=== PATIENT | female | born 1955 | race Caucasian/White ===

== ENCOUNTER → 2017-11-28 01:51 | Outpatient (CLI) | payer BC, SELFPAY ==
--- NOTE | 2017-11-28 11:50 | DI.REPORT_ITS ---
SYMPTOMS/DIAGNOSIS: SCREENING, Z12.31 MAMMOGRAM: Mammograms were interpreted according to the usual protocol including computer analysis with CAD system, tomosynthesis and C view imaging. Comparison is made with exams from 2013 through 2017. The breasts are composed of fatty density tissue. There are no suspicious masses or suspicious microcalcifications. There has been no significant change. IMPRESSION: Category I A, negative mammogram. Routine screening is recommended. [facility] ASSESSMENT OF FINDINGS: Negative. Category 1. Patient will receive a letter notifying them of these results. BI-RAD category A. The breasts are almost entirely fatty.
== END ==
PROVIDERS: PCP Family Medicine; Visit Provider Family Medicine
DX: Z12.31 Encounter for screening mammogram for malignant neoplasm of breast (principal)
CPT/HCPCS: 77063; 77067

== ENCOUNTER 2018-02-11 14:01 | Emergency (ER) | payer BC, SELFPAY ==
[2018-02-11] VITALS (14 sets, daily range): BP systolic 133–181; BP diastolic 69–121; PULSE 63–76; RESP 16–18; TEMP 36.6–37; O2SAT 94–99
--- NOTE | 2018-02-11 14:12 | DI.CT_ITS ---
SYMPTOM/DIAGNOSIS: BACK AND LUQ PAIN CT ABDOMEN AND PELVIS: CT scan of the abdomen and pelvis was performed following the uneventful administration of intravenous contrast material. No priors for comparison. The visualized lung bases are clear. There are small round hypodense lesions seen in the liver. They are too small for further characterization but likely reflect cysts. No suspicious hepatic masses are seen. The portal and superior mesenteric veins are patent. The patient is status post cholecystectomy. No biliary ductal dilatation is present. The pancreas, spleen and adrenal glands are unremarkable. The kidneys show normal and symmetric enhancement. No evidence of a solid renal mass or obstruction is seen. The urinary bladder is intact. The reproductive organs are unremarkable. There is diverticulosis of the colon but no evidence of acute diverticulitis. The bowel is unremarkable without evidence of obstruction. There is a normal appendix present. The abdominal aorta is of normal caliber. No aneurysmal dilatation is seen. No significant abdominal or pelvic ascites or pneumoperitoneum is present. Note is made of a small fat containing umbilical hernia. There is slight increased attenuation in the mesentery in the left upper quadrant (hoda mesentery). There are enlarged lymph nodes seen in the mesentery. The largest measures 2.1 cm. The bones are intact. IMPRESSION: Findings consistent with acute mesenteritis.
--- NOTE | 2018-02-11 14:12 | W.ED.GENAD ---
Discharge Plan Disposition Patient Disposition: HOME Condition: Fair Discharge Details Chief Complaint: Abd Prob Clinical Impression: Abdominal pain Reason For Visit: back and LUQ pain Primary Care Provider: Angi Reynolds ED Provider: Angela Medrano Home Meds and New Rx's Prescriptions: New tramadol 50 mg tablet 50 mg PO Q6H PRN (Reason: pain) Qty: 7 RF: 0 Continue vitamin E 400 UNIT capsule 1 cap PO DAILY RF: 0 calcium carbonate-vitamin D3 [Caltrate with Vitamin D3] 1 EACH tablet 1 tab PO DAILY RF: 0 glucosamine sulfate 2KCl 1,000 MG tablet 1,000 mg PO DAILY RF: 0 simvastatin [Zocor] 20 MG tablet 1 tab PO QAM Qty: 90 RF: 3 levothyroxine [Synthroid] 75 MCG tablet 75 mcg PO as directed Qty: 24 RF: 4 sertraline [Zoloft] 100 MG tablet 1 tab PO DAILY Qty: 90 RF: 3 levothyroxine 50 MCG tablet 50 mcg PO - Qty: 70 RF: 4 conj estrog-medroxyprogest urszula [Prempro] 1 EACH tablet 1 tab-cap PO DIRECTED Qty: 90 RF: 1 aspirin [Aspir-Low] 81 mg Tablet,Delayed Release (Dr/Ec) 81 mg PO DAILY RF: 0 cranberry-B.jlxsepdn-X-Cl phos [Cranberry-Probiotic] 480 mg-20 mg- 100million cell Tablet 1 tab PO DAILY RF: 0 Discharge Instructions Instructions: Abdominal Pain (ED) Additional Instructions: Encourage hydration. Tylenol and/or ibuprofen as needed for discomfort. You may augment this with tramadol as prescribed. Please take this only as prescribed and keep this in a safe place. Laboratory evaluation is reassuring today. Your imaging suggest mesenteritis which is inflammation of the mesentery. You will need follow-up with general surgery this week for reevaluation. I have asked her acute care occupational therapist to help facilitate this. If you develop increased pain, fever/chills, vomiting, inability to stay hydrated or other new/worsening symptoms please seek care urgently once again. Referrals: Angi Reynolds [Primary Care Provider] - Discharge Data Discharge Date/Time-TO BE ENTERED AT DEPARTURE: 02/11/18 18:14 Medical Decision Making Patient is a 62-year-old female presenting today with chief complaint of left upper quadrant and left-sided back pain. She reports she awoke with some back discomfort which she reports felt like a ache. States that it did not actually wake him from sleep. Throughout the day the pain has progressively increased and has been spreading around anteriorly. She denies any chest pain or shortness of breath. Is endorsing some mild nausea that has since resolved. States she had normal bowel movement this morning. Reports last alcohol intake was 3 days ago at which time she had a few glasses of wine. She had diminished appetite today. States over the past month she has noted her diet to be particularly poor. She does not have elevated blood pressure but she did check this earlier this week and awakened and noted to be 168/70. This is higher than typical. Attributes this to her dietary changes. States she has never had pain like this previously. Patient is status post cholecystectomy and laparoscopic lysis of adhesion. Laboratory evaluation without significant abnormality CT reviewed by radiologist. There are 2 intermediate subcentimeter low-density hepatic lesions. Per white paper guidelines, they advised no follow-up is necessary. Patient is noted to be status post cholecystectomy. Pancreas unremarkable no ductal dilation. Spleen is unremarkable spinal megaly. Adrenals are normal with no mass. Kidneys and ureters are unremarkable no stones or hydronephrosis. Patient is noted to have mild diverticulosis of the descending sigmoid colon, no diverticulitis. No colitis. No enteritis. No bowel obstruction. Unremarkable stomach. No evidence of appendicitis. Bladder is unremarkable as visualized. Reproductive unremarkable as visualized. Intraperitoneal space is significant for hazy density of mesenteric fat hoda mesentery in the left upper quadrant. Thin pseudocapsule in cases the inflamed mesentery and there are mildly enlarged mesenteric lymph nodes. These mesenteric nodes have a halo of spread fat. These findings are consistent with acute mesenteritis. Degenerative disc disease and facet arthrosis of the lumbar spine, most severe at L1-L2 with no acute fracture. Soft tissues are unremarkable. Vasculature is unremarkable as visualized no abdominal aortic aneurysm Discussed CT findings with Dr. Sy. She advised that this is likely inflammatory versus a viral process. Given the patient's laboratory evaluation with no leukocytosis, shift or other abnormality noted, she did not advise antibiotics at this time. Rather, she advised follow-up as an outpatient in the clinic. Discussed the findings of the CT and recommendations by general surgery with the patient. Advised that as her pain seems to wax and wane, I will prescribe tramadol to help with her discomfort which she may use to augment Tylenol and ibuprofen as needed. I did advise close follow-up with general surgery. She is requesting referral to [facility] that she has been seen here previously. I have asked her acute care occupational therapist to help facilitate follow-up this week with general surgery for reevaluation. They did encourage patient to seek care urgently once again with any new or worsening symptoms particularly as this pain was just coming on and may be developing process. She was given strict return precautions. All of her questions and concerns were addressed and she is in agreement with this plan. HPI General Mode of arrival: ambulatory. Date/Time Provider Initiated Documentation: 02/11/18 14:11. Limitations to Documentation: no limitations. Information obtained by: patient. History of Present Illness 62 year old F presents to the emergency department with the chief complaint of LUQ pain, described as mild, with intensity rated at 3. Quality is described as aching, and is localized to the abdomen. Patient reports radiation to back (left flank). Patient started experiencing this hour(s) (0430 this AM) and it has been constant. No relieving factors improve symptom(s), No exacerbating factors reported . Patient notes loss of appetite; denies chest pain, cough, diaphoresis, fever/chills, headaches, nausea/vomiting, rash and shortness of breath. Patient did receive the following treatments prior to arrival, none Related Data Home Medications Medication Instructions Recorded Confirmed calcium carbonate-vitamin D3 1 tab PO DAILY 08/14/12 02/11/18 [Caltrate with Vitamin D3] vitamin E 1 cap PO DAILY 08/14/12 02/11/18 glucosamine sulfate 2KCl 1,000 mg PO DAILY 01/07/13 02/11/18 levothyroxine [Synthroid] 75 mcg PO as directed #24 tab 10/28/14 02/11/18 sertraline [Zoloft] 1 tab PO DAILY #90 tab-cap 10/28/14 02/11/18 simvastatin [Zocor] 1 tab PO QAM #90 tab-cap 10/28/14 02/11/18 levothyroxine 50 mcg PO M-F #70 tab-cap 10/30/14 02/11/18 conj estrog-medroxyprogest urszula 1 tab-cap PO DIRECTED #90 02/26/15 02/11/18 [Prempro] tab-cap aspirin [Aspir-Low] 81 mg PO DAILY 02/11/18 02/11/18 cranberry-B.fkmodbru-B-Ny phos 1 tab PO DAILY 02/11/18 02/11/18 [Cranberry-Probiotic] tramadol 50 mg PO Q6H PRN #7 tab 02/11/18 Previous Rx's Medication Instructions Recorded tramadol 50 mg PO Q6H PRN #7 tab 02/11/18 Allergies Allergy/AdvReac Type Severity Reaction Status Date / Time No Known Allergies Allergy Unverified 02/11/18 14:25 Review of Systems Constitutional Reports as per HPI, Denies chills, Denies fatigue, Denies fever(s) and Denies headache(s) ENT Denies headache(s) Cardiovascular Reports as per HPI, Denies chest pain and Denies dyspnea Respiratory Denies dyspnea Gastrointestinal Reports as per HPI Musculoskeletal Reports as per HPI and Denies back pain Integumentary/Breasts Reports as per HPI and Denies rash Neurologic Denies headache(s) Endocrine Denies fatigue PFSH Family History Mother Essential hypertension Personal history of malignant neoplasm Hyperlipidemia Father Essential hypertension Personal history of malignant neoplasm Hyperlipidemia Cerebrovascular accident Sister Essential hypertension Hyperlipidemia Brother Essential hypertension Heart disease Hyperlipidemia Brother Multiple sclerosis Brother Personal history of malignant neoplasm Grandfather Personal history of malignant neoplasm Grandfather Personal history of malignant neoplasm Grandmother Personal history of malignant neoplasm Heart disease Grandmother Heart disease Myocardial infarction Social History Smoking/Tobacco Use Status: Never Surgical History Arthroplasty of knee (~2001) section Cholecystectomy (~2010) Diagnostic Laproscopy EAR SURGERY (~03/2013) MASTOIDECTOMY (~1994) Tonsillectomy (~1980) Exam Const General: cooperative, healthy appearing, comfortable, no acute distress and well developed Nutritional Appearance: well nourished and overweight Orientation: alert and awake HENMT Head: normal to inspection Mouth: moist mucous membranes Resp Effort & Inspection: normal respiratory effort, able to speak in complete sentences and no respiratory distress Auscultation: clear to auscultation bilaterally, no rales, no rhonchi and no wheezes Cardio Rate: regular rate Rhythm: regular rhythm Heart Sounds: S1 normal and S2 normal GI Inspection: normal to inspection, no abdominal wall ecchymosis, no edema and non-distended Palpation: soft, no hepatosplenomegaly, no aortic enlargement, not firm, no guarding, no hernias, not rigid and tender in the LUQ; not in the epigastrum, not at McBurney's point, not periumbilically, not suprapubicly, Ellison's sign negative, with no rebound tenderness and Rovsing's sign negative Auscultation: normal bowel sounds Back/Spine/Pelvis Back: no CVA tenderness Skin General skin exam: no rashes or lesions noted Trauma: no lacerations or abrasions Neuro General: alert and awake Cognition: normal cognition Speech: speech normal Gait: normal gait Psych Appearance: grossly normal and well kempt Mental Status: mental status grossly normal Speech and Movement: speech and movement normal
--- NOTE | 2018-02-11 14:30 | ED.GENADUL_ITS ---
Discharge Plan Disposition Patient Disposition: HOME Condition: Fair Discharge Details Chief Complaint: Abd Prob Clinical Impression: Abdominal pain Reason For Visit: back and LUQ pain Primary Care Provider: Angi Reynolds ED Provider: Angela Medrano Home Meds and New Rx's Prescriptions: New tramadol 50 mg tablet 50 mg PO Q6H PRN (Reason: pain) Qty: 7 RF: 0 Continue vitamin E 400 UNIT capsule 1 cap PO DAILY RF: 0 calcium carbonate-vitamin D3 [Caltrate with Vitamin D3] 1 EACH tablet 1 tab PO DAILY RF: 0 glucosamine sulfate 2KCl 1,000 MG tablet 1,000 mg PO DAILY RF: 0 simvastatin [Zocor] 20 MG tablet 1 tab PO QAM Qty: 90 RF: 3 levothyroxine [Synthroid] 75 MCG tablet 75 mcg PO as directed Qty: 24 RF: 4 sertraline [Zoloft] 100 MG tablet 1 tab PO DAILY Qty: 90 RF: 3 levothyroxine 50 MCG tablet 50 mcg PO - Qty: 70 RF: 4 conj estrog-medroxyprogest urszula [Prempro] 1 EACH tablet 1 tab-cap PO DIRECTED Qty: 90 RF: 1 aspirin [Aspir-Low] 81 mg Tablet,Delayed Release (Dr/Ec) 81 mg PO DAILY RF: 0 cranberry-B.jgpzegxl-K-Vl phos [Cranberry-Probiotic] 480 mg-20 mg- 100million cell Tablet 1 tab PO DAILY RF: 0 Discharge Instructions Instructions: Abdominal Pain (ED) Additional Instructions: Encourage hydration. Tylenol and/or ibuprofen as needed for discomfort. You may augment this with tramadol as prescribed. Please take this only as prescribed and keep this in a safe place. Laboratory evaluation is reassuring today. Your imaging suggest mesenteritis which is inflammation of the mesentery. You will need follow-up with general surgery this week for reevaluation. I have asked her care consultant to help facilitate this. If you develop increased pain, fever/chills, vomiting, inability to stay hydrated or other new/worsening symptoms please seek care urgently once again. Referrals: Angi Reynolds [Primary Care Provider] - Discharge Data Discharge Date/Time-TO BE ENTERED AT DEPARTURE: 02/11/18 18:14 Medical Decision Making Patient is a 62-year-old female presenting today with chief complaint of left upper quadrant and left-sided back pain. She reports she awoke with some back discomfort which she reports felt like a ache. States that it did not actually wake him from sleep. Throughout the day the pain has progressively increased and has been spreading around anteriorly. She denies any chest pain or shortness of breath. Is endorsing some mild nausea that has since resolved. States she had normal bowel movement this morning. Reports last alcohol intake was 3 days ago at which time she had a few glasses of wine. She had diminished appetite today. States over the past month she has noted her diet to be particularly poor. She does not have elevated blood pressure but she did check this earlier this week and awakened and noted to be 168/70. This is higher than typical. Attributes this to her dietary changes. States she has never had pain like this previously. Patient is status post cholecystectomy and laparoscopic lysis of adhesion. Laboratory evaluation without significant abnormality CT reviewed by radiologist. There are 2 intermediate subcentimeter low-density hepatic lesions. Per white paper guidelines, they advised no follow-up is necessary. Patient is noted to be status post cholecystectomy. Pancreas unremarkable no ductal dilation. Spleen is unremarkable spinal megaly. Adrenals are normal with no mass. Kidneys and ureters are unremarkable no stones or hydronephrosis. Patient is noted to have mild diverticulosis of the descending sigmoid colon, no diverticulitis. No colitis. No enteritis. No bowel obstruction. Unremarkable stomach. No evidence of appendicitis. Bladder is unremarkable as visualized. Reproductive unremarkable as visualized. Intraperitoneal space is significant for hazy density of mesenteric fat hoda mesentery in the left upper quadrant. Thin pseudocapsule in cases the inflamed mesentery and there are mildly enlarged mesenteric lymph nodes. These mesenteric nodes have a halo of spread fat. These findings are consistent with acute mesenteritis. Degenerative disc disease and facet arthrosis of the lumbar spine, most severe at L1-L2 with no acute fracture. Soft tissues are unremarkable. Vasculature is unremarkable as visualized no abdominal aortic aneurysm Discussed CT findings with Dr. Sy. She advised that this is likely inflammatory versus a viral process. Given the patient's laboratory evaluation with no leukocytosis, shift or other abnormality noted, she did not advise antibiotics at this time. Rather, she advised follow-up as an outpatient in the clinic. Discussed the findings of the CT and recommendations by general surgery with the patient. Advised that as her pain seems to wax and wane, I will prescribe tramadol to help with her discomfort which she may use to augment Tylenol and ibuprofen as needed. I did advise close follow-up with general surgery. She is requesting referral to [facility] that she has been seen here previously. I have asked her care consultant to help facilitate follow-up this week with general surgery for reevaluation. They did encourage patient to seek care urgently once again with any new or worsening symptoms particularly as this pain was just coming on and may be developing process. She was given strict return precautions. All of her questions and concerns were addressed and she is in agreement with this plan. HPI General Mode of arrival: ambulatory . Date/Time Provider Initiated Documentation: 02/11/18 14:11 . Limitations to Documentation: no limitations . Information obtained by: patient . History of Present Illness 62 year old F presents to the emergency department with the chief complaint of LUQ pain, described as mild, with intensity rated at 3. Quality is described as aching, and is localized to the abdomen. Patient reports radiation to back (left flank). Patient started experiencing this hour(s) ( 0430 this AM) and it has been constant. No relieving factors improve symptom (s), No exacerbating factors reported . Patient notes loss of appetite; denies chest pain, cough, diaphoresis, fever/chills, headaches, nausea/vomiting , rash and shortness of breath. Patient did receive the following treatments prior to arrival, none Related Data Home Medications Medication Instructions Recorded Confirmed calcium carbonate-vitamin D3 1 tab PO DAILY 08/14/12 02/11/18 [Caltrate with Vitamin D3] vitamin E 1 cap PO DAILY 08/14/12 02/11/18 glucosamine sulfate 2KCl 1,000 mg PO DAILY 01/07/13 02/11/18 levothyroxine [Synthroid] 75 mcg PO as directed #24 tab 10/28/14 02/11/18 sertraline [Zoloft] 1 tab PO DAILY #90 tab-cap 10/28/14 02/11/18 simvastatin [Zocor] 1 tab PO QAM #90 tab-cap 10/28/14 02/11/18 levothyroxine 50 mcg PO M-F #70 tab-cap 10/30/14 02/11/18 conj estrog-medroxyprogest urszula 1 tab-cap PO DIRECTED #90 02/26/15 02/11/18 [Prempro] tab-cap aspirin [Aspir-Low] 81 mg PO DAILY 02/11/18 02/11/18 cranberry-B.mjupmpqp-E-Vg phos 1 tab PO DAILY 02/11/18 02/11/18 [Cranberry-Probiotic] tramadol 50 mg PO Q6H PRN #7 tab 02/11/18 Previous Rx's Medication Instructions Recorded tramadol 50 mg PO Q6H PRN #7 tab 02/11/18 Allergies Allergy/AdvReac Type Severity Reaction Status Date / Time No Known Allergies Allergy Unverified 02/11/18 14:25 Review of Systems Constitutional Reports as per HPI, Denies chills, Denies fatigue, Denies fever(s) and Denies headache(s) ENT Denies headache(s) Cardiovascular Reports as per HPI, Denies chest pain and Denies dyspnea Respiratory Denies dyspnea Gastrointestinal Reports as per HPI Musculoskeletal Reports as per HPI and Denies back pain Integumentary/Breasts Reports as per HPI and Denies rash Neurologic Denies headache(s) Endocrine Denies fatigue PFSH Family History Mother Essential hypertension Personal history of malignant neoplasm Hyperlipidemia Father Essential hypertension Personal history of malignant neoplasm Hyperlipidemia Cerebrovascular accident Sister Essential hypertension Hyperlipidemia Brother Essential hypertension Heart disease Hyperlipidemia Brother Multiple sclerosis Brother Personal history of malignant neoplasm Grandfather Personal history of malignant neoplasm Grandfather Personal history of malignant neoplasm Grandmother Personal history of malignant neoplasm Heart disease Grandmother Heart disease Myocardial infarction Social History Smoking/Tobacco Use Status: Never Surgical History Arthroplasty of knee (~2001) section Cholecystectomy (~2010) Diagnostic Laproscopy EAR SURGERY (~03/2013) MASTOIDECTOMY (~1994) Tonsillectomy (~1980) Exam Const General: cooperative, healthy appearing, comfortable, no acute distress and well developed Nutritional Appearance: well nourished and overweight Orientation: alert and awake HENMT Head: normal to inspection Mouth: moist mucous membranes Resp Effort & Inspection: normal respiratory effort, able to speak in complete sentences and no respiratory distress Auscultation: clear to auscultation bilaterally, no rales, no rhonchi and no wheezes Cardio Rate: regular rate Rhythm: regular rhythm Heart Sounds: S1 normal and S2 normal GI Inspection: normal to inspection, no abdominal wall ecchymosis, no edema and non -distended Palpation: soft, no hepatosplenomegaly, no aortic enlargement, not firm, no guarding, no hernias, not rigid and tender in the LUQ; not in the epigastrum, not at McBurney's point, not periumbilically, not suprapubicly, Ellison's sign negative, with no rebound tenderness and Rovsing's sign negative Auscultation: normal bowel sounds Back/Spine/Pelvis Back: no CVA tenderness Skin General skin exam: no rashes or lesions noted Trauma: no lacerations or abrasions Neuro General: alert and awake Cognition: normal cognition Speech: speech normal Gait: normal gait Psych Appearance: grossly normal and well kempt Mental Status: mental status grossly normal Speech and Movement: speech and movement normal
[2018-02-11] MEDS: Normal Saline 1,000 ML 1000 ML IV (14:40)
[2018-02-11] MEDS: Normal Saline Flush 10 ML SYR IVP (14:40)
[2018-02-11 14:51] LABS: Abs Immature Grans 0.01 k/cumm (0.0-0.09); Absolute Basophil Count 0.04 k/cumm (0.0-0.2); Absolute Eosinophil Count 0.17 k/cumm (0.0-0.7); Absolute Lymphocyte Count 2.82 k/cumm (1.2-3.4); Absolute Monocyte Count 0.64 k/cumm (0.11-0.7); Absolute Neutrophil Count 5.04 k/cumm (1.2-6.7); Basophils % 0.5; Eosinophils % 1.9; HCT 42.2 % (36.0-46.0); Immature Grans % 0.1; Lymphocytes % 32.3; Mean Corp. HGB Concentration 33.2 g/dL (32.0-36.0); Mean Corpuscular Hemoglobin 31.3 pg (27.0-33.0); Mean Corpuscular Volume 94.4 fL (80-95); Mean Platelet Volume 10.5 fL (8.0-11.0); Monocytes % 7.3; Neutrophils % 57.9; Platelet Count 227 x1000/uL (130-400); RBC 4.47 m/cumm (4.00-5.20); White Blood Cell Count 8.72 k/cumm (4.4-10.8)
[2018-02-11] MEDS: MORPHine 10 MG/ML VIAL 2 MG IVP (14:54)
[2018-02-11 15:10] LABS: ALT 34 U/L (12-78); AST 22 U/L (15-37); Albumin 3.3 g/dL (3.4-5.0); Alkaline Phosphatase 76 U/L (46-116); Anion Gap 6.3 mmol/L (3-11); BUN 15 mg/dL (7-18); Bilirubin, Total 0.3 mg/dL (0.2-1.0); CO2 31.7 mmol/L (21.0-32.0); CREATININE 0.97 mg/dL (0.55-1.02); Calcium 8.8 mg/dL (8.5-10.1); Chloride 103 mmol/L (98-107); Estimated GFR 58.58 (mL/min/1.73m2); Glucose 129 mg/dL (70-100); Lipase 199 U/L (73-393); Magnesium 1.9 mg/dL (1.8-2.4); Potassium 3.6 mmol/L (3.5-5.1); Sodium 141 mmol/L (136-145)
[2018-02-11 15:13] LABS: Troponin I < 0.02 ng/mL (0.00-0.06)
[2018-02-11 16:07] LABS: Bilirubin Negative (Negative); Blood Negative (Negative); Clarity Clear; Glucose Negative (Negative); Ketones Negative (Negative); Leukocyte Esterase Negative (Negative); Nitrite Negative (Negative); Specific Gravity 1.015 (1.005-1.025); Urobilinogen 0.2 EU/dL (Up TO 0.2)
[2018-02-11] MEDS: Omnipaque 350 MG/ML 100 ML BTL IJ (16:25)
--- NOTE | 2018-02-11 16:44 | DI.VRAD_ITS ---
EXAM: CT Abdomen and Pelvis With Intravenous Contrast EXAM DATE/TIME: 02/11/2018 2:14 PM CLINICAL HISTORY: 62 years old, female; Pain; Abdominal pain; Localized; Left upper quadrant (luq); Patient HX: Back and luq pain TECHNIQUE: Axial computed tomography images of the abdomen and pelvis with intravenous contrast. Coronal and sagittal reformatted images were created and reviewed. COMPARISON: No relevant prior studies available. FINDINGS: Lower thorax: No acute findings. ABDOMEN: Liver: There are 2 indeterminate subcentimeter low-density hepatic lesions. ACR White Paper guidelines (Berland, et al. JACR 2010; 7(10):754-98) suggest that no follow-up is necessary. Gallbladder and bile ducts: Status post cholecystectomy. Pancreas: Unremarkable. No ductal dilation. Spleen: Unremarkable. No splenomegaly. Adrenals: Normal. No mass. Kidneys and ureters: Unremarkable. No stones. No hydronephrosis. Stomach and bowel: Mild diverticulosis of the descending and sigmoid colon. No diverticulitis. No colitis. No enteritis. No bowel obstruction. Unremarkable stomach. Appendix: No evidence of appendicitis. PELVIS: Bladder: Unremarkable as visualized. Reproductive: Unremarkable as visualized. ABDOMEN and PELVIS: Intraperitoneal space: There is hazy density of the mesenteric fat (hoda mesentery) in the left upper quadrant. A thin pseudocapsule encases the inflamed mesentery and there are mildly enlarged mesenteric lymph nodes. These mesenteric nodes have a halo of spared fat. The findings are consistent with acute mesenteritis. Bones/joints: Degenerative disc disease and facet arthrosis of the lumbar spine, most severe at L1-L2. No acute fracture. Soft tissues: Unremarkable. Vasculature: Unremarkable. No abdominal aortic aneurysm. Lymph nodes: See above. IMPRESSION: 1. Acute mesenteritis. 2. 2 indeterminate subcentimeter hepatic low-density lesions. ACR White Paper guidelines (Berland, et al. JACR 2010; 7(10):759-59) suggest that no follow-up is necessary. Dictated and Authenticated by: Zeeshan Berry MD. Ordering:MONSE LANGFORD MD
[2018-02-11] MEDS: traMADol 50 MG TAB 150 MG PO (18:04)
--- NOTE | 2018-02-13 17:09 | NUR.NOTE ---
Nursing Note: [place] [facility] [place] patient's preference for follow up. [phone]
== END 2018-02-11 18:14 | disposition home or self-care (01) ==
PROVIDERS: Emergency Provider Physician Assistant; PCP Family Medicine
DX: K65.4 Sclerosing mesenteritis (principal); R10.12 Left upper quadrant pain; M54.5 Low back pain; M51.36 Other intervertebral disc degeneration, lumbar region
CPT/HCPCS: 36415; 80053; 83690; 93005; 96361; 96374; 99285; 74177; 81003; 83735; 84484; 85025; 93010; 99284; J2270; J3490

== ENCOUNTER 2018-03-16 07:15 | Outpatient (CLI) | payer BC, SELFPAY ==
[2018-03-16 09:45] LABS: Cholesterol 219 mg/dL (50-200); HDL Cholesterol 61 mg/dL (40-60); LDL CHOLESTEROL 133 mg/dL (<100); TSH (W/Ref FT4) 2.69 uIU/mL (0.358-3.74); Triglyceride 171 mg/dL (30-150)
== END 2018-03-16 07:35 ==
PROVIDERS: PCP Family Medicine; Visit Provider Family Medicine
DX: E78.5 Hyperlipidemia, unspecified (principal); E03.9 Hypothyroidism, unspecified
CPT/HCPCS: 36415; 80061; 83721; 84443

== ENCOUNTER 2018-11-13 07:42 | Outpatient (CLI) | payer BC, SELFPAY ==
[2018-11-14 11:43] LABS: Lyme Ab w Rflx to Lyme Confirm Negative
[2018-11-15 19:52] LABS: Anaplasma phagocytophilum Negative (Negative); B. miyamotoi PCR Negative (Negative); Babesia divergens/MO-1 Negative (Negative); Babesia duncani Negative (Negative); Babesia microti Negative (Negative); Ehrlichia chaffeensis Negative (Negative); Ehrlichia ewingii/canis Negative (Negative); Ehrlichia muris eauclairensis Negative (Negative)
== END 2018-11-13 08:02 ==
PROVIDERS: PCP Family Medicine; Visit Provider Family Medicine
DX: R00.2 Palpitations (principal)
CPT/HCPCS: 36415; 87798; 86618

== ENCOUNTER 2019-01-21 08:50 | Outpatient (CLI) | payer BC, SELFPAY ==
[2019-01-21 10:17] LABS: ALT 29 U/L (14-59); AST 21 U/L (15-37); Albumin 3.4 g/dL (3.4-5.0); Alkaline Phosphatase 72 U/L (46-116); Anion Gap 8.4 mmol/L (3-11); BUN 14 mg/dL (7-18); Bilirubin, Total 0.5 mg/dL (0.2-1.0); CO2 28.6 mmol/L (21.0-32.0); CREATININE 0.85 mg/dL (0.55-1.02); Calculated LDL 102 mg/dL; Chloride 109 mmol/L (98-107); Cholesterol 178 mg/dL (50-200); Glucose 113 mg/dL (70-100); HDL Cholesterol 62 mg/dL (40-60); Potassium 4.4 mmol/L (3.5-5.1); Sodium 146 mmol/L (136-145); Total Protein 6.2 g/dL (6.4-8.2); Triglyceride 73 mg/dL (30-150)
== END 2019-01-21 09:10 ==
PROVIDERS: PCP Family Medicine; Visit Provider Family Medicine
DX: E78.5 Hyperlipidemia, unspecified (principal); Z00.00 Encounter for general adult medical examination without abnormal findings; E11.9 Type 2 diabetes mellitus without complications; E66.9 Obesity, unspecified; N95.1 Menopausal and female climacteric states
CPT/HCPCS: 36415; 80053; 80061

== ENCOUNTER 2019-03-27 00:58 | Outpatient (CLI) | payer BC, SELFPAY ==
--- NOTE | 2019-03-27 13:20 | DI.US_ITS ---
EXAM: US PELVIS AND TRANSVAGINAL CLINICAL HISTORY: N95.0 POSTMENOPAUSAL BLEEDING, INCLUDE ENDOMETRIAL THICKNESS TECHNIQUE: Ultrasound performed using standard protocol. Transabdominal and transvaginal exams wer e performed. FINDINGS: The exam is somewhat limited by patient body habitus. The uterus measures 6.1 x 3.1 x 4 cm. The end ometrium was not visible on the transvaginal images. A few calcifications are seen in the expected l ocation of the endometrium. The right ovary is normal in size and shows no evidence of a cyst or mas s. The left ovary was not able to be visualized. No free fluid or hydronephrosis is seen. IMPRESSION: Normal size uterus. The endometrial stripe was not well seen on either abdominal or transvaginal peterson ging. The left ovary was not visualized.
== END 2019-03-27 01:18 ==
PROVIDERS: PCP Family Medicine; Visit Provider Nurse Practitioner Women's Health
DX: N95.0 Postmenopausal bleeding (principal)
CPT/HCPCS: 76830; 76856

== ENCOUNTER 2019-04-08 09:30 | Outpatient (REF) | payer BC, SELFPAY ==
--- NOTE | 2019-04-08 08:50 | ENDOMET_PTH ---
PATIENT: Nunu Jade LOC: [facility] U#:[id number] AGE/SX: 63/F ROOM: RE04/08/[address]: Ashley Triana NP : 1955 BED: DIS: 04/08/2019 SPEC #: [id number] RECD: 04/08/19 12:33 STATUS: JOSE ANGEL REQ #: [id number] RHIANNA: 04/08/19 08:[address]: Ashley Triana NP DEPT: Surgical Specimen RECD BY: Lesly Sweeney ENTERED: 04/08/19 12:33 SP TYPE: Endomet OTHR DR: Angi Reynolds Tissues: 1 - ENDOMETRIUM BX/SHERRILL Procedures: GROSS AND MICRO LEVEL 4 Comments: [id number]
== END 2019-04-08 09:50 ==
LOC: LBN 09:30
PROVIDERS: PCP Family Medicine; Visit Provider Nurse Practitioner Women's Health
DX: N85.01 Benign endometrial hyperplasia (principal); N95.0 Postmenopausal bleeding
CPT/HCPCS: 88305

== ENCOUNTER 2019-11-04 10:16 | Outpatient (CLI) | payer BC, SELFPAY ==
[2019-11-06 18:13] LABS: SARS-CoV-2 RNA Undetected (Undetected); SARS-CoV-2 Specimen Source Nasopharynx
== END 2019-11-04 10:36 ==
LOC: LBO 10:16 → NCHCO 10:23
PROVIDERS: PCP Family Medicine; Visit Provider Nurse Practitioner Family
DX: Z11.59 Encounter for screening for other viral diseases (principal)
CPT/HCPCS: U0003

== ENCOUNTER 2019-12-26 01:13 | Outpatient (CLI) | payer BC, SELFPAY ==
--- NOTE | 2019-12-26 15:23 | DI.MAMMO_ITS ---
EXAM: MG MAMMO SCREENING CLINICAL HISTORY: SCREENING, Z12.31 TECHNIQUE: Mammograms were interpreted according to the usual protocol including computer analysis w [employer] CAD system, tomosynthesis and C-view imaging. COMPARISON: FINDINGS: The breasts are of moderate density with fairly symmetrical distribution of fibroglandular tissue. N o dominant mass or clumped microcalcification is identified in either breast. The current examinatio n is compared with previous examinations including November 2017 and there has been no gross interval c hange in appearanceIn comparison with the prior studies. IMPRESSION: No specific evidence of malignancy at this time. Routine screening examinations are suggested at yea rly intervals in this age group according to the ACS ACR guidelines. BI-RADS Cat 1 - Negative Breast Density - Category B - Scattered areas of fibroglandular density
== END 2019-12-26 01:33 ==
PROVIDERS: PCP Family Medicine; Visit Provider Nurse Practitioner Family
DX: Z12.31 Encounter for screening mammogram for malignant neoplasm of breast (principal)
CPT/HCPCS: 77063; 77067

== ENCOUNTER 2020-02-18 21:43 | Emergency (ER) | payer BC, SELFPAY ==
[2020-02-18 21:49] VITALS: BP 140/80; PULSE 85; RESP 16; TEMP 36.8; O2SAT 97
--- NOTE | 2020-02-18 22:17 | ED.GENADUL_ITS ---
Discharge Plan Disposition Patient Disposition: HOME Condition: Good Discharge Details Clinical Impression: Splinter of finger Primary Care Provider: Angi Reynolds ED Provider: Iraj Foley Home Meds and New Rx's Prescriptions: New cephalexin [Keflex] 500 mg capsule 500 mg PO QID 4 Days Qty: 16 RF: 0 Continued vitamin E 400 UNIT capsule 1 cap PO DAILY RF: 0 calcium carbonate-vitamin D3 [Caltrate with Vitamin D3] 1 EACH tablet 1 tab PO DAILY RF: 0 glucosamine sulfate 2KCl 1,000 MG tablet 1,000 mg PO DAILY RF: 0 simvastatin [Zocor] 20 MG tablet 1 tab PO QAM Qty: 90 RF: 3 levothyroxine [Synthroid] 75 MCG tablet 75 mcg PO as directed Qty: 24 RF: 4 sertraline [Zoloft] 100 MG tablet 1 tab PO DAILY Qty: 90 RF: 3 levothyroxine 50 MCG tablet 50 mcg PO - Qty: 70 RF: 4 aspirin [Aspir-Low] 81 mg Tablet,Delayed Release (Dr/Ec) 81 mg PO DAILY RF: 0 Cranberry-Probiotic 480 mg-20 mg- 100million cell Tablet 1 tab PO DAILY RF: 0 Discharge Instructions Instructions: Soft Tissue Foreign Body (ED) Additional Instructions: Splint has been removed. I do suspect that with movement of the wrist may amount of pus and/or drainage for the next day, which should resolve. Please take the antibiotic as directed. Please keep the area dry for the next 48 hours, however you can apply triple antibiotic ointment. Keep it bandaged. You may gently wash it with warm soap and water after 48 hours. Make sure to keep it clean. Continue to apply antibiotic ointment. Do not directly soak the area. Watch for any signs of infection and return if any increasing redness, swelling, pain, drainage. Referrals: Angi Reynolds [Primary Care Provider] - Medical Decision Making 64-year-old female presents for splinter in her right thumb in her dominant hand. Tetanus was last updated in 2010. She states that she was running her hand along the banister when a very large splinter ripped off into her thumb. She was concerned about it size and depth and came in for further evaluation. Aside for pain in the fingers she denies any other complaints. No other modifying factors. Event occurred moments before arrival. Finger was anesthetized with 3 cc of lidocaine, a small incision was made and then a subsequent 1 cm long splinter was removed from the fingertip. It appears to be intact. No other abnormalities noted on exam. Area was cleaned with copious amounts of chlorhexidine scrub vigorously. Bandage was applied. Patient tolerated procedure well. Tetanus has been updated, we will do a short 5-day course of Keflex with the first fourth dose being given here. Discussed red flags which to return. I have extensively reviewed the treatment plan and discharge instructions with the patient. I have addressed all patient concerns at this time. The patient was made aware of what symptoms to monitor for that would warrant a return to the emergency department. Discussed the plan with the patient, they demonstrate verbal understanding and agreement with our assessment and plan at this time. HPI General Date/Time Provider Initiated Documentation: 02/18/20 21:44 . HPI Narrative: 64-year-old female presents for splinter in her right thumb in her dominant hand. Tetanus was last updated in 2010. She states that she was running her hand along the banister when a very large splinter ripped off into her thumb. She was concerned about it size and depth and came in for further evaluation. Aside for pain in the fingers she denies any other complaints. No other modifying factors. Event occurred moments before arrival. Related Data Home Medications Medication Instructions Recorded Confirmed calcium carbonate-vitamin D3 1 tab PO DAILY 08/14/12 02/18/20 [Caltrate with Vitamin D3] vitamin E 1 cap PO DAILY 08/14/12 02/18/20 glucosamine sulfate 2KCl 1,000 mg PO DAILY 01/07/13 02/18/20 levothyroxine [Synthroid] 75 mcg PO as directed #24 tab 10/28/14 02/18/20 sertraline [Zoloft] 1 tab PO DAILY #90 tab-cap 10/28/14 02/18/20 simvastatin [Zocor] 1 tab PO QAM #90 tab-cap 10/28/14 02/18/20 levothyroxine 50 mcg PO M-F #70 tab-cap 10/30/14 02/18/20 Cranberry-Probiotic 1 tab PO DAILY 02/11/18 02/18/20 aspirin [Aspir-Low] 81 mg PO DAILY 02/11/18 02/18/20 cephalexin [Keflex] 500 mg PO QID 4 Days #16 cap 02/18/20 Previous Rx's Medication Instructions Recorded cephalexin [Keflex] 500 mg PO QID 4 Days #16 cap 02/18/20 Allergies Allergy/AdvReac Type Severity Reaction Status Date / Time No Known Allergies Allergy Unverified 02/18/20 21:56 General Stated Complaint: GenMedical CHRISTINE: 4 Review of Systems All systems reviewed & are unremarkable except as noted in HPI and below PFSH Medical History Dyspareunia Vaginal atrophy Surgical History Arthroplasty of knee (~2001) RIGHT section 1994 & 1996 Cholecystectomy (~2010) Diagnostic Laproscopy FOR ADHESIONS EAR SURGERY (~03/2013) History of mastoidectomy 1994 Tonsillectomy (~1980) Family History Mother Essential hypertension Personal history of malignant neoplasm SKIN/PANCREATIC Hyperlipidemia Father Essential hypertension Personal history of malignant neoplasm SKIN Hyperlipidemia Stroke Sister Essential hypertension Hyperlipidemia Brother Essential hypertension Heart disease Hyperlipidemia Brother , SUICIDE at age 48. Multiple sclerosis Brother Personal history of malignant neoplasm SKIN Grandfather Personal history of malignant neoplasm PROSTATE Grandfather Personal history of malignant neoplasm LUNG/STOMACH Grandmother Personal history of malignant neoplasm LEUKEMIA Heart disease Grandmother Heart disease Myocardial infarction Social History Smoking/Tobacco Use Status: Never Smoking risk assessment performed?: Yes Drug use: Never Do you feel safe at home: Yes Do you feel safe in your relationship?: Yes History History 3 Para 2 Hx # Term Pregnancies Multiple births Hx # Pregnancies Ectopic pregnancies AB induced Hx Number of Living Children AB spontaneous Exam Narrative Exam Narrative: 1.Const: Well-nourished, Well-developed, appearing stated age 2.Eyes: PERRL, no conjunctival injection, and symmetrical lids. 3.ENT: Atraumatic external nose and ears. Moist MM. Neck: Symmetric, trachea midline, No thyromegaly. 4.CVS: Peripheral pulses 2+ and equal in all extremities. Brisk capillary refill in all extremities. 5.RESP: Unlabored respiratory effort. Clear to auscultation bilaterally. No wheezes rales or rhonchi 6.GI: Soft, Nontender/Nondistended, No hepatosplenomegaly. No guarding or rebound. 7.MSK: Normocephalic/Atraumatic, Extremities w/o deformity or ttp No cyanosis or clubbing, Normal movement of all extremities 8.Skin: Right thumb demonstrates small introduction site, bedside ultrasound demonstrates subcutaneous splinter roughly 1 cm in length no numbness tingling or decrease in flexion or extension 9.Neuro: consultant education II-XII grossly intact. Sensation grossly intact, no focal neurologic deficits. 10.Psych: (AAO) x3. Appropriate mood and affect Course Vital Signs Vital signs: Vital Signs Temperature 36.8 C 02/18/20 21:49 Pulse 85 02/18/20 21:49 Respiratory Rate 16 02/18/20 21:49 Blood Pressure 140/80 02/18/20 21:49 Pulse Oximetry 97 02/18/20 21:49 Temperature 36.8 C 02/18/20 21:49 Temperature Source Temporal Artery Scan 02/18/20 21:49 Pulse 85 02/18/20 21:49 Respiratory Rate 16 02/18/20 21:49 Respiratory Effort 02/18/20 21:52 Blood Pressure 140/80 02/18/20 21:49 Pulse Oximetry 97 02/18/20 21:49 Pain Level 2 02/18/20 21:49 Procedures Foreign Body Removal Time Out Performed: yes Site: right and hand (thumb) Description of foreign body: other (splinter) Sedation/Analgesia: other (lidocaine) Technique: removal with forceps and incision made to facilitate removal Confirmed by:: direct visualization and ultrasound Complications: none Post-procedure exam: awake, alert, normal BP, normal HR and normal O2 sat Neurovascular: normal distal pulse, normal capillary fill, distal light touch sensation intact, distal motor function normal and no signs of compartment syndrome
[2020-02-18] MEDS: Cephalexin 500 MG CAP, 4 CAPS/BTL PO (22:30)
[2020-02-18 22:35] VITALS: BP 140/80; PULSE 85; RESP 16; TEMP 36.8; O2SAT 97
== END 2020-02-18 22:35 | disposition home or self-care (01) ==
PROVIDERS: Emergency Provider Student in an Organized Health Care Education/Training Program; PCP Family Medicine
DX: S61.041A Puncture wound with foreign body of right thumb without damage to nail, initial encounter (principal); W45.8XXA Other foreign body or object entering through skin, initial encounter
CPT/HCPCS: 10120; 90471

== ENCOUNTER 2020-07-22 11:54 | Emergency (ER) | payer BC, SELFPAY ==
--- NOTE | 2020-07-22 12:00 | DI.RAD_ITS ---
EXAM: XR ANKLE RT COMPLETE CLINICAL HISTORY: lateral pain and swelling. TECHNIQUE: 2D digital imaging was performed. COMPARISON: CR RIGHT ANKLE COMPLETE from 08/22/2009 FINDINGS: There is soft tissue swelling laterally. There is a an avulsion fracture off the tip of the lateral malleolus noted. Medial and posterior mal leoli appear intact as does the talar dome. There is no widening of the ankle mortise. Large inferi or calcaneal spur is noted. No osseous tarsal coalition. IMPRESSION: There is an avulsion fracture off the tip of the lateral malleolus noted. There is overlying soft ti ssue swelling. DATA REPOSITORY: RADIATION DOSE DELIVERED:
[2020-07-22 12:08] VITALS: BP 154/94; PULSE 75; TEMP 36.6; O2SAT 98
--- NOTE | 2020-07-22 12:14 | ED.GENADUL_ITS ---
Discharge Plan Disposition Patient Disposition: HOME Condition: Improving Discharge Details Clinical Impression: Right fibular fracture Primary Care Provider: Angi Reynolds ED Provider: Codey Cervantes Home Meds and New Rx's Prescriptions: Continued vitamin E 400 UNIT capsule 1 cap PO DAILY RF: 0 calcium carbonate-vitamin D3 [Caltrate with Vitamin D3] 1 EACH tablet 1 tab PO DAILY RF: 0 glucosamine sulfate 2KCl 1,000 MG tablet 1,000 mg PO DAILY RF: 0 simvastatin [Zocor] 20 MG tablet 1 tab PO QAM Qty: 90 RF: 3 levothyroxine [Synthroid] 75 MCG tablet 75 mcg PO as directed Qty: 24 RF: 4 sertraline [Zoloft] 100 MG tablet 1 tab PO DAILY Qty: 90 RF: 3 levothyroxine 50 MCG tablet 50 mcg PO - Qty: 70 RF: 4 diltiazem HCl 30 mg tablet 30 mg PO DAILY RF: 0 aspirin [Aspir-Low] 81 mg Tablet,Delayed Release (Dr/Ec) 81 mg PO DAILY RF: 0 Cranberry-Probiotic 480 mg-20 mg- 100million cell Tablet 1 tab PO DAILY RF: 0 Discharge Instructions Instructions: Leg Fracture (ED) Additional Instructions: Please follow-up with orthopedic. Your name will be placed on the follow-up list and we will ask you to call for an appointment time. The number is [phone]. May remove the walking boot to bathe and while at rest. Please wear while awake and out of bed. Elevate above the level of the heart to reduce pain and swelling. May continue to apply ice topically to reduce discomfort Tylenol and/or ibuprofen as needed for pain Nonweightbearing with crutches until seen by orthopedics. Return to the ER for any acute concerns. Medical Decision Making 64-year-old female presents from home with her . She was walking on unlevel ground when she tripped, deviated her ankle and fell forward. She separately developed right lateral ankle swelling and pain that is worse with attempts at weightbearing. No loss of consciousness she denies any other injury other than mild abrasions to the left palm and left knee. Exam is mostly notable for swelling of her right lateral malleolus. She has a aforementioned abrasions but do not feel imaging of those areas is required. Patient given acetaminophen, ice, she had some mild nausea and was given Zofran. She was referred for x-ray. There is a distal fibular avulsion fracture. Patient notes previous difficulty navigating with an ankle sprain. Therefore placed in a walking boot with crutches. We will ask her to follow-up with orthopedics to ensure definitive resolution. She is stable for outpatient management HPI General Mode of arrival: wheelchair . Date/Time Provider Initiated Documentation: 07/22/20 12:06 . Limitations to Documentation: no limitations . Information obtained by: patient and family . History of Present Illness 64 year old F presents to the emergency department with the chief complaint of Right ankle lateral pain and swelling, described as moderate, Quality is described as dull, and is localized to the right and lower extremity. Patient proximal. Patient started experiencing this minute(s) and it has been constant. Rest improves symptom(s), Movement worsens symptoms . Patient notes no other symptoms.; denies headaches and syncope. Patient did receive the following treatments prior to arrival, none Related Data Home Medications Medication Instructions Recorded Confirmed calcium carbonate-vitamin D3 1 tab PO DAILY 08/14/12 07/22/20 [Caltrate with Vitamin D3] vitamin E 1 cap PO DAILY 08/14/12 07/22/20 glucosamine sulfate 2KCl 1,000 mg PO DAILY 01/07/13 07/22/20 levothyroxine [Synthroid] 75 mcg PO as directed #24 tab 10/28/14 07/22/20 sertraline [Zoloft] 1 tab PO DAILY #90 tab-cap 10/28/14 07/22/20 simvastatin [Zocor] 1 tab PO QAM #90 tab-cap 10/28/14 07/22/20 levothyroxine 50 mcg PO M-F #70 tab-cap 10/30/14 07/22/20 Cranberry-Probiotic 1 tab PO DAILY 02/11/18 07/22/20 aspirin [Aspir-Low] 81 mg PO DAILY 02/11/18 07/22/20 diltiazem HCl 30 mg PO DAILY 07/22/20 07/22/20 Allergies Allergy/AdvReac Type Severity Reaction Status Date / Time No Known Allergies Allergy Unverified 07/22/20 12:12 General Stated Complaint: Orthopedic CHRISTINE: 4 Review of Systems Narrative: 4 systems reviewed and otherwise negative [facility] Medical History (Updated 07/22/20 @ 13:21 by Codey Cervantes MD) Dyspareunia Vaginal atrophy Surgical History Arthroplasty of knee (~2001) RIGHT section 1994 & 1996 Cholecystectomy (~2010) Diagnostic Laproscopy FOR ADHESIONS EAR SURGERY (~03/2013) History of mastoidectomy 1994 Tonsillectomy (~1980) Family History Mother Essential hypertension Personal history of malignant neoplasm SKIN/PANCREATIC Hyperlipidemia Father Essential hypertension Personal history of malignant neoplasm SKIN Hyperlipidemia Stroke Sister Essential hypertension Hyperlipidemia Brother Essential hypertension Heart disease Hyperlipidemia Brother , SUICIDE at age 48. Multiple sclerosis Brother Personal history of malignant neoplasm SKIN Grandfather Personal history of malignant neoplasm PROSTATE Grandfather Personal history of malignant neoplasm LUNG/STOMACH Grandmother Personal history of malignant neoplasm LEUKEMIA Heart disease Grandmother Heart disease Myocardial infarction Social History Smoking/Tobacco Use Status: Never Smoking risk assessment performed?: Yes Alcohol Intake: current Alcohol Intake frequency: holidays/special occasions only Drug use: Never Substance use type: does not use Do you feel safe at home: Yes Do you feel safe in your relationship?: Yes History History 3 Para 2 Hx # Term Pregnancies Multiple births Hx # Pregnancies Ectopic pregnancies AB induced Hx Number of Living Children AB spontaneous Exam Narrative Exam Narrative: GEN: awake, alert, oriented 3. Pleasant, well groomed, interactive. HEAD: Normocephalic, atraumatic ENT: Mucous membranes moist, oropharynx unremarkable, External ear exam unremarkable EYES: PERRL, EOMI NECK: Full ROM, no CHUN, no menigismus, nontender CHEST/RESP: Nontender, clear to auscultation bilateral, no wheeze/rhonchi/rales CARDIOVASCULAR: RRR, no murmur, rub asia. 2+ Rad pulse bilateral ABDOMEN: Soft, nontender, no mass. +Bowel sounds EXT: Abrasions proximal left palm, no bony tenderness. Abrasion left knee, no patellar tenderness, no joint laxity. The right lateral malleolus and ankle are diffusely tender and there is predominantly lateral swelling. 2+ DP palpated. Neuro: Grossly normal neurologic exam, conversant, interactive. Psych: Speech fluent, thoughts congruent, affect normal Course Vital Signs Vital signs: Vital Signs Temperature 36.6 C 07/22/20 12:08 Pulse 75 07/22/20 12:08 Blood Pressure 154/94 H 07/22/20 12:08 Pulse Oximetry 98 07/22/20 12:08 Temperature 36.6 C 07/22/20 12:08 Temperature Source Temporal Artery Scan 07/22/20 12:08 Pulse 75 07/22/20 12:08 Respiratory Effort Non-Labored 07/22/20 12:11 Blood Pressure 154/94 H 07/22/20 12:08 Blood Pressure Position Sitting 07/22/20 12:08 Pulse Oximetry 98 07/22/20 12:08 Oxygen Delivery Method Room Air 07/22/20 12:08 Oxygen Flow Rate 0 07/22/20 12:08 Pain Level 3 07/22/20 12:11
[2020-07-22] MEDS: Acetaminophen 500 MG TAB 1000 MG PO (12:30)
[2020-07-22] MEDS: Ondansetron O.D.T. 4 MG TABEF PO (12:30)
--- NOTE | 2020-07-22 13:59 | CMPROGNOTE_ITS ---
- If Service Date Differs Date of service: 07/22/20 Time of Service: 13:59 Care Management Progress Note Nunu presents in the ED for a right fibular fracture. At the request of Dr. Cervantes, ED provider, SARATH telephones [facility] to inquire about the availability of wheelchairs for rent. Renny at [facility] advises that he is out of regular wheelchairs but does have a 24 inch wheelchair available. The cost of the rental is $170.00 per month. This information is relayed to patient and her .
== END 2020-07-22 14:06 | disposition home or self-care (01) ==
PROVIDERS: Emergency Provider Emergency Medicine; PCP Family Medicine
DX: S82.61XA Displaced fracture of lateral malleolus of right fibula, initial encounter for closed fracture (principal); W19.XXXA Unspecified fall, initial encounter; X50.9XXA Other and unspecified overexertion or strenuous movements or postures, initial encounter
CPT/HCPCS: 27786; 73610

== ENCOUNTER 2020-09-03 13:34 | Outpatient (CLI) | payer BC, SELFPAY ==
--- NOTE | 2020-09-03 13:30 | DI.RAD_ITS ---
Exam(s) XR ANKLE RT COMPLETE EXAM: XR ANKLE RT COMPLETE INDICATION: eval R distal fibula pain, s/p inversion injury. COMPARISON: CR XR ANKLE RT COMPLETE from 07/22/2020 TECHNIQUE: 2D digital imaging was performed. FINDINGS: There has been no change in the alignment of the fracture at the tip of the lateral malleolus. Some soft tissue swelling remains present. No ankle mortise widening is seen. A heel spur is again noted . DATA REPOSITORY: RADIATION DOSE DELIVERED:
== END 2020-09-03 13:35 | disposition home or self-care (01) ==
LOC: DIORS 13:35
PROVIDERS: PCP Family Medicine; Referring Provider Family Medicine; Visit Provider Student in an Organized Health Care Education/Training Program
DX: M79.661 Pain in right lower leg (principal); M77.31 Calcaneal spur, right foot; S82.61XD Displaced fracture of lateral malleolus of right fibula, subsequent encounter for closed fracture with routine healing
CPT/HCPCS: 73610

== ENCOUNTER 2020-11-12 04:45 | Outpatient (CLI) | payer BC, SELFPAY ==
[2020-11-12 09:23] LABS: HCT 43.5 % (36.0-46.0); HGB 14.2 g/dL (11.2-15.7); MCH 30.9 pg (27.0-33.0); MCHC 32.6 % (32.0-36.0); MCV 94.6 fL (80-95); MPV 10.5 fL (8.0-11.0); Platelet Count 229 10^3/uL (130-400); RDW 12.7 % (11.7-14.6); WBC 5.95 10^3/uL (4.4-10.8)
[2020-11-12 11:35] LABS: ALT 23 U/L (14-59); AST 21 U/L (15-37); Albumin 3.6 g/dL (3.4-5.0); Alkaline Phosphatase 83 U/L (46-116); Anion Gap 7.4 mmol/L (3-11); BUN 14 mg/dL (7-18); Bilirubin, Total 0.4 mg/dL (0.2-1.0); CO2 27.6 mmol/L (21.0-32.0); CREATININE 0.9 mg/dL (0.55-1.02); Calcium 8.7 mg/dL (8.5-10.1); Calculated LDL 113 mg/dL (<100); Chloride 107 mmol/L (98-107); Cholesterol 192 mg/dL (<200); Glucose 113 mg/dL (74-106); HDL Cholesterol 62 mg/dL (40-60); Potassium 4.8 mmol/L (3.5-5.1); Sodium 142 mmol/L (136-145); TSH (W/Ref FT4) 1.58 uIU/mL (0.36-3.74); Total Protein 6.5 g/dL (6.4-8.2); Triglyceride 89 mg/dL (<150)
[2020-11-12 11:48] LABS: Vitamin D 25 Total 36.5 ng/mL (30-100)
== END 2020-11-12 04:46 | disposition home or self-care (01) ==
LOC: LBO 04:45
PROVIDERS: PCP Family Medicine; Visit Provider Family Medicine
DX: Z00.00 Encounter for general adult medical examination without abnormal findings (principal); E03.9 Hypothyroidism, unspecified; R00.2 Palpitations; R73.03 Prediabetes; E55.9 Vitamin D deficiency, unspecified
CPT/HCPCS: 36415; 80053; 80061; 82306; 85027; 84443

== ENCOUNTER 2020-11-19 10:33 | Outpatient (REF) | payer BC, SELFPAY ==
--- NOTE | 2020-11-19 09:15 | PAPFT_PTH ---
PATIENT: Nunu Jade LOC: [facility]#:[id number] AGE/SX: 65/F ROOM: RE11/19/[address]: Angi Reynolds : 1955 BED: DIS: 11/19/2020 SPEC #: [id number] RECD: 11/19/20 13:15 STATUS: JOSE ANGEL REAmy #: [id number] RHIANNA: 11/19/20 09:[address]: Angi Reynolds DEPT: [facility] Cytology RECD BY: Lesly Sweeney Tissues: 1 - CX/ENDOCX FOR PAP SMEARS Procedures: PAP THIN PREP/UVM Screening HPV DNA PROBE Comments: [id number]
== END 2020-11-19 10:34 | disposition home or self-care (01) ==
LOC: NCHCN 10:33
PROVIDERS: PCP Family Medicine; Visit Provider Family Medicine
DX: Z00.00 Encounter for general adult medical examination without abnormal findings (principal); Z12.4 Encounter for screening for malignant neoplasm of cervix; Z01.419 Encounter for gynecological examination (general) (routine) without abnormal findings; Z11.51 Encounter for screening for human papillomavirus (HPV)
CPT/HCPCS: 88142; 87624

== ENCOUNTER 2020-12-18 04:04 | Outpatient (CLI) | payer BC, SELFPAY ==
--- NOTE | 2020-12-18 | DI.DEXA_ITS ---
Exam(s) XR DEXA BONE DENSITY W/WO JARETT EXAM: XR DEXA BONE DENSITY W/WO JARETT CLINICAL HISTORY: MENOPAUSAL SCREENING, Z78.0 TECHNIQUE: COMPARISON: Comparison 11/17/2015. FINDINGS: Lateral Spine Image: Unremarkable. No compression deformities identified. Left hip: Total T-Score: 1.0. This compares to 1.9 on the prior examination. Total Z-Score: 2.1 T- and Z-scores: Within normal limits. Lumbar Spine: Total T-Score: 1.0. This compares to 1.6 on the prior examination. Total Z-Score: T- and Z-scores: Within normal limits. IMPRESSION: No evidence of osteoporosis.
== END 2020-12-18 04:24 ==
PROVIDERS: PCP Family Medicine; Visit Provider Family Medicine
DX: Z78.0 Asymptomatic menopausal state (principal)
CPT/HCPCS: 77080

== ENCOUNTER 2021-01-01 03:25 | Outpatient (CLI) | payer BC, SELFPAY ==
--- NOTE | 2021-01-01 | DI.MAMMO_ITS ---
Exam(s) MAMMO SCREENING EXAM: MAMMO SCREENING CLINICAL HISTORY: SCREENING, Z12.31 TECHNIQUE: Bilateral full field digital CC and MLO mammographic images were obtained with 3D tomosyn thesis and utilizing computer aided detection (CAD). COMPARISON: Available for comparison. FINDINGS: Masses/Architectural Distortion: None seen. Microcalcifications: No suspicious pleomorphic-type are seen. Skin Thickening/Nipple Retraction: None. IMPRESSION: 1. No significant interval change with no specific features of malignancy noted. 2. Unless there is more urgent need, screening mammography is recommended, as per [employer] guidelines. BI-RADS Category 1 - Negative Breast Density - Category A - Almost entirely fatty Breast density category C or D implies that the patient has dense breast tissue. Dense breast tissue is very common and is not abnormal but dense breast tissue can make it harder to find cancer on a ma mmogram. Also, dense breast tissue may increase their breast cancer risk. This information about the result of the mammogram report was provided to the patient to raise their awareness. Use this report when you speak with the patient about their risks for breast cancer, which includes their family hist ory. At that time, you may recommend for more screening tests (Ultrasound or MRI) as they might be us eful based on their risk. A negative radiographic report should not delay biopsy if a dominant or clinically suspicious mass is present. Up to ten percent of cancers are not identified on mammography. A negative report may reinforce clinical impression. Adenosis and dense breasts may obscure an underlying neoplasm. False positive reports average 6 to 10%. Patient will receive a letter notifying them of these results.
== END 2021-01-01 03:45 ==
PROVIDERS: PCP Family Medicine; Visit Provider Family Medicine
DX: Z12.31 Encounter for screening mammogram for malignant neoplasm of breast (principal)
CPT/HCPCS: 77063; 77067

== ENCOUNTER 2021-07-01 16:35 | Outpatient (REF) | payer BC, SELFPAY ==
[2021-07-01 21:33] LABS: HCT 44.7 % (36.0-46.0); HGB 14.2 g/dL (11.2-15.7); MCH 30.8 pg (27.0-33.0); MCHC 31.8 % (32.0-36.0); MPV 11.5 fL (8.0-11.0); Platelet Count 225 10^3/uL (130-400); RBC 4.61 10^6/uL (3.93-5.22); RDW 13.5 % (11.7-14.6); RDW-SD 48.1 fL; WBC 5.94 10^3/uL (4.4-10.8)
[2021-07-01 21:37] LABS: ALT 27 U/L (14-59); AST 17 U/L (15-37); Albumin 3.8 g/dL (3.4-5.0); Alkaline Phosphatase 78 U/L (46-116); Anion Gap 5.8 mmol/L (3-11); BUN 15 mg/dL (7-18); Bilirubin, Total 0.5 mg/dL (0.2-1.0); C-Reactive Protein 0.11 mg/dL (0.0-0.3); CO2 29.2 mmol/L (21.0-32.0); CREATININE 0.8 mg/dL (0.55-1.02); Calcium 8.7 mg/dL (8.5-10.1); Chloride 108 mmol/L (98-107); Glucose 106 mg/dL (74-106); Potassium 4.2 mmol/L (3.5-5.1); Sodium 143 mmol/L (136-145); Total Protein 6.9 g/dL (6.4-8.2)
[2021-07-01 21:38] LABS: ESR 20 mm/hr (0-30)
== END 2021-07-01 16:36 | disposition home or self-care (01) ==
LOC: NCHCN 16:35
PROVIDERS: PCP Family Medicine; Visit Provider Nurse Practitioner Family
DX: R10.12 Left upper quadrant pain (principal)
CPT/HCPCS: 80053; 85027; 85652; 86140

== ENCOUNTER → 2021-07-02 21:46 | Outpatient (CLI) | payer BC, SELFPAY ==
--- NOTE | 2021-07-02 | DI.CT_ITS ---
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 TECHNIQUE: Imaging Protocol: Axial CT angiography was performed with multi-slice acquisition and m ulti-planar and/or 3D reconstructions. CONTRAST MATERIAL: Intravenous: Omnipaque 350 Contrast volume:100 Oral: No FINDINGS: ABDOMEN AND PELVIS: Abdomen: Celiac axis/mesenteric arteries: No evidence of occlusion or significant stenosis. Renal Arteries: No evidence of occlusion or significant stenosis. There is a single renal artery perf using each kidney. Aorta: No evidence of occlusion or significant stenosis. No aneurysm or dissection. Mild atheroscler osis. Pelvis: Iliac Arteries: No evidence of occlusion or significant stenosis. Mild atherosclerosis. Common Femoral Arteries: No evidence of occlusion or significant stenosis. ABDOMEN: Lung bases: Unremarkable. Liver: Normal density. There are few tiny hypodensities in the liver. They are too small for further characterization, but likely reflect small cysts. Portal, Superior Mesenteric, and Splenic Veins: Unremarkable. Gallbladder and Biliary Tract: Status post cholecystectomy. No biliary ductal dilatation. Pancreas: Normal density, no abnormal calcifications or inflammatory process. Spleen: Normal. Adrenals: No masses seen. Kidneys: Normal size, contour and axis. No radiodense stones or obstructive uropathy. No masses seen. Bowel: No obstruction or bowel wall thickening. Appendix is unremarkable. There is diverticulosis in the sigmoid colon, but no evidence of acute diverticulitis. Peritoneal Cavity: No ascites, collection or mesenteric inflammatory response. No free air. Lymph Nodes: Within normal limits. Bones: Degenerative changes in the thoracic and lumbar spine. Soft Tissues: Unremarkable. PELVIS: Bladder: Symmetric distention, no gross wall thickening. Reproductive Organs: Unremarkable as visualized. Lymph Nodes: Within normal limits. Bones: Within normal limits. IMPRESSION: 1. Unremarkable CT angiography of the abdomen and pelvis. 2. No acute abdominal or pelvic process. 3. Diverticulosis of the colon but no evidence of acute diverticulitis. RADIATION DOSE DELIVERED: 2,156.58mGy.cm Total DLP DATA REPOSITORY: All CT scans at this facility are submitted to the National Radiology Data Registry (NRDR) Dose Index Registry (DIR) with the [employer] ([employer]). RADIATION OPTIMIZATION: All CT scans at this facility use at least one of these dose optimization te chniques: automated exposure control; mA and/or kV adjustment per patient size (includes targeted exa ms where dose is matched to clinical indication); or iterative reconstruction.
[2021-07-02] MEDS: Omnipaque 350 MG/ML 100 ML BTL IJ (15:27)
== END ==
PROVIDERS: PCP Family Medicine; Visit Provider Nurse Practitioner Family
DX: K65.4 Sclerosing mesenteritis (principal); R10.12 Left upper quadrant pain; K57.30 Diverticulosis of large intestine without perforation or abscess without bleeding
CPT/HCPCS: 74174; J3490

== ENCOUNTER 2021-07-03 16:37 | Emergency (ER) | payer BC, SELFPAY ==
[2021-07-03 16:45] VITALS: BP 200/84; PULSE 70; RESP 18; TEMP 36.4; O2SAT 100
--- NOTE | 2021-07-03 16:45 | RT.EKG_ITS ---
APPROVED REPORT Exam: Resting ECG Reason for Exam: elevated BP Patient Location: E HR:70 bpm ECG Measurements Heart Rate 70 AXIS KS 161 P 11 QRSd 91 QRS 30 QT 409 T 50 QTc 442 Conclusion Sinus rhythm...normal P axis, V-rate 60- 99. Sinus. Normal axis. No STEMI. I have reviewed and interpreted ECG and agree with software generated interpretation.
--- NOTE | 2021-07-03 16:59 | ED.GENADUL_ITS ---
Discharge Plan Disposition Patient Disposition: HOME Condition: Improving Discharge Details Clinical Impression: Abdominal pain, Headache, Hypertension Primary Care Provider: Angi Reynolds ED Provider: Cherelle Velásquez Home Meds and New Rx's Prescriptions: New sucralfate [Carafate] 1 gram tablet 1 gm PO QACHS Qty: 14 0RF Prilosec 10 mg susp,delayed release for recon 20 mg PO DAILY Qty: 30 0RF Continued vitamin E 400 UNIT capsule 1 cap PO DAILY 0RF calcium carbonate-vitamin D3 [Caltrate with Vitamin D3] 1 EACH tablet 1 tab PO DAILY 0RF glucosamine sulfate 2KCl 1,000 MG tablet 1,000 mg PO DAILY 0RF simvastatin [Zocor] 20 MG tablet 1 tab PO QAM Qty: 90 3RF levothyroxine [Synthroid] 75 MCG tablet 75 mcg PO as directed Qty: 24 4RF Rx Instructions: one tab Sat and Sun sertraline [Zoloft] 100 MG tablet 1 tab PO DAILY Qty: 90 3RF levothyroxine 50 MCG tablet 50 mcg PO M- Qty: 70 4RF diltiazem HCl 30 mg tablet 30 mg PO DAILY 0RF sulfamethoxazole-trimethoprim 800-160 mg tablet 1 tab PO BID 0RF Label Comments: TAKE ONE TABLET BY MOUTH TWICE A DAY aspirin [Aspir-Low] 81 mg Tablet,Delayed Release (Dr/Ec) 81 mg PO DAILY 0RF Cranberry-Probiotic 480 mg-20 mg- 100million cell Tablet 1 tab PO DAILY 0RF Discharge Instructions Instructions: Diet for Stomach Ulcers and Gastritis (ED), GERD (Gastroesophageal Reflux Disease) (ED), Abdominal Pain (ED), Hypertension (ED), General Headache (ED) Additional Instructions: Your lab work and imaging today is reassuring and shows no evidence of acute concerning or significant findings. You can consider an elimination diet for possible gastroesophageal reflux to see if this improves your pain. You were given prescriptions for Prilosec and Carafate to take as directed. You should also limit the amount of sodium in your diet as this can raise your blood pressure. Call your primary care doctor on Monday morning to schedule a follow-up appointment for reevaluation and for referral to surgery for further evaluation and consideration for upper endoscopy if her symptoms do not improve or worsen. Return immediately to the emergency department if you develop any worsening or new concerning symptoms. Referrals: Evelia Jacobs DO [OSTEOPATHIC DOCTOR] - Discharge Data Discharge Date/Time-TO BE ENTERED AT DEPARTURE: 07/03/21 20:15 Discharge Physician: Cherelle Velásquez Medical Decision Making 65-year-old female with a history of hypothyroidism and hyperlipidemia presents for left-sided abdominal pain with radiation to her back for the past week and headache and hypertension for the past few days. BP as high as 170s/100s. She also states her primary care doctor placed her on Bactrim for urinary frequency of which she has taken 3 doses. BP on arrival 200/84. Remainder vitals within normal limits. She appears comfortable and nontoxic. She has left lateral rib tenderness but no abdominal tenderness, rigidity or pulsatile mass. There is no evidence of rash, cellulitis or trauma. Her lungs are clear. She has no focal deficits. Review of records note that she had unremarkable labs per her PCP 2 days ago and an unremarkable CT abdomen and pelvis yesterday. I discussed with patient that I do not see an indication for repeat CT abdomen/pelvis but considering her headache and hypertension, will obtain a CT head, and a chest xray for her left lateral rib pain and repeat screening labs and urinalysis. We will also give a dose of IV Tylenol, Pepcid, Carafate and GI cocktail and reassess. Discussed that differential diagnosis includes GERD, gastritis, PUD, shingles, pancreatitis, pneumonia, electrolyte abnormality, viral syndrome. History and presentation does not appear consistent with acute CVA, subarachnoid hemorrhage, aortic dissection, AAA rupture. Labs and imaging reviewed and unremarkable. Normal white blood cell count. Potassium 3.4. Troponin negative. Lipase normal. Urinalysis notes trace blood but otherwise no evidence of infection. CT head negative. Chest x-ray negative. Patient reassessed and she feels much better and would like to go home. Her blood pressure has significantly improved to 135/72. We will send with prescriptions for Prilosec and Carafate. She was advised to start an elimination diet for GERD and gastritis. Advised to call her primary care doctor on Monday for follow-up and for referral to surgery for EGD if her symptoms do not improve or worsen. Advised to limit her sodium as this can raise blood pressure. We will hold on starting any blood pressure medication at this time as it has improved. She was advised to take her Bactrim until finished at this time and to discuss hematuria further with her primary care doctor or urology. She was advised to continue to monitor for development of a rash at her left upper quadrant for consideration for possible shingles. Usual and customary return precautions given prior to discharge. Medical Records Medical records reviewed: Yes I reviewed the patient's medical records. Medical records narrative: 07/02/21 CTA Abdomen/pelvis FINDINGS: ABDOMEN AND PELVIS: Abdomen: Celiac axis/mesenteric arteries: No evidence of occlusion or significant stenosis. Renal Arteries: No evidence of occlusion or significant stenosis. There is a single renal artery perfusing each kidney. Aorta:? No evidence of occlusion or significant stenosis. No aneurysm or dissection. Mild atherosclerosis. Pelvis: Iliac Arteries:? No evidence of occlusion or significant stenosis. Mild atherosclerosis. Common Femoral Arteries:? No evidence of occlusion or significant stenosis. ABDOMEN: Lung bases: Unremarkable.? Liver: Normal density. There are few tiny hypodensities in the liver.? They are too small for further characterization, but likely reflect small cysts.? Portal, Superior Mesenteric, and Splenic Veins: Unremarkable.? Gallbladder and Biliary Tract: Status post cholecystectomy.? No biliary ductal dilatation.? Pancreas: Normal density, no abnormal calcifications or inflammatory process. Spleen: Normal. Adrenals: No masses seen. Kidneys: Normal size, contour and axis. No radiodense stones or obstructive uropathy. No masses seen. Bowel: No obstruction or bowel wall thickening. Appendix is unremarkable. There is diverticulosis in the sigmoid colon, but no evidence of acute diverticulitis. Peritoneal Cavity: No ascites, collection or mesenteric inflammatory response. No free air. Lymph Nodes: Within normal limits. Bones: Degenerative changes in the thoracic and lumbar spine.? Soft Tissues: Unremarkable. PELVIS: Bladder: Symmetric distention, no gross wall thickening. Reproductive Organs: Unremarkable as visualized. Lymph Nodes: Within normal limits. Bones: Within normal limits. IMPRESSION: 1. Unremarkable CT angiography of the abdomen and pelvis. 2. No acute abdominal or pelvic process.? 3. Diverticulosis of the colon but no evidence of acute diverticulitis. Imaging Data Radiologic Study: Radiologist's impression: XR Chest Exam date and time: 07/03/2021 6:33 PM Age: 65 years old Clinical indication: Other: L lateral rib pain, R/O acute disease TECHNIQUE: Imaging protocol: XR of the chest. Views: 2 views. COMPARISON: CT ABDOMEN PELVIS CTA 07/02/2021 3:11 PM FINDINGS: Lungs: No focal areas of consolidation. Pleural spaces: Unremarkable. No pleural effusion. No pneumothorax. Heart/Mediastinum: Cardiac and mediastinal silhouettes are unremarkable. Bones/joints: No acute osseus lesion or fracture. IMPRESSION: No acute cardiopulmonary findings. CT Head Without Contrast Exam date and time: 07/03/2021 6:32 PM Age: 65 years old Clinical indication: Headache/hypertension, R/O acute CVA TECHNIQUE: Imaging protocol: Computed tomography of the head without contrast. COMPARISON: No relevant prior studies available. FINDINGS: Brain: No intracranial hemorrhage or extra-axial fluid collection. No evidence of mass effect or midline shift. Landaverde-white matter differentiation is intact. Cerebral ventricles: No ventriculomegaly. Paranasal sinuses: Visualized sinuses are unremarkable. No fluid levels. Mastoid air cells: Unremarkable. Bones/joints: No acute osseus lesion or fracture. Soft tissues: Unremarkable. IMPRESSION: No acute intracranial pathology. Lab Data Lab results reviewed: Yes I reviewed the patient's lab results. Labs: Laboratory Tests Range/Units 07/03/21 07/03/21 07/03/21 17:20 17:20 18:05 WBC (4.4-10.8) 10^3/uL 6.32 RBC (3.93-5.22) 10^6/uL 4.58 Hgb (11.2-15.7) g/dL 14.2 Hct (36.0-46.0) % 43.8 MCV (80-95) fL 95.6 H MCH (27.0-33.0) pg 31.0 MCHC (32.0-36.0) % 32.4 RDW (11.7-14.6) % 13.3 Plt Count (130-400) 10^3/uL 212 MPV (8.0-11.0) fL 11.1 H Immature Gran % 0.2 Neutrophils % 57.3 Lymphocytes % 35.0 Monocytes % 4.7 Eosinophils % 1.7 Basophils % 1.1 Nucleated RBC % % 0 Absolute Neutrophils (1.2-6.7) 10^3/uL 3.62 Absolute Lymphocytes (1.2-3.4) 10^3/uL 2.21 Absolute Monocytes (0.1-0.8) 10^3/uL 0.30 Absolute Eosinophils (0.0-0.7) 10^3/uL 0.11 Absolute Basophils (0.0-0.2) 10^3/uL 0.07 Sodium (136-145) mmol/L 140 Potassium (3.5-5.1) mmol/L 3.4 L Chloride (98-107) mmol/L 106 Carbon Dioxide (21.0-32.0) mmol/L 26.3 Anion Gap (3-11) mmol/L 7.7 BUN (7-18) mg/dL 14 Creatinine (0.55-1.02) mg/dL 1.1 H Estimated GFR/1.73 m2 (mL/min/1.73m2) 50.17 Glucose (74-106) mg/dL 135 H Calcium (8.5-10.1) mg/dL 8.5 Magnesium (1.8-2.4) mg/dL 2.2 Total Bilirubin (0.2-1.0) mg/dL 0.4 AST (15-37) U/L 17 ALT (14-59) U/L 25 Alkaline Phosphatase (46-116) U/L 76 Troponin I (<or=60) ng/L < 50 Total Protein (6.4-8.2) g/dL 7.1 Albumin (3.4-5.0) g/dL 3.7 Lipase (73-393) U/L 136 Urine Color (Yellow) Yellow Urine Clarity (Clear) Clear Urine pH (5-8) 6.0 Ur Specific [place] (1.005-1.025) 1.025 Urine Protein (Negative) mg/dL Negative Urine Ketones (Negative) mg/dL Negative Urine Blood (Negative) Trace-intact H Urine Nitrite (Negative) Negative Urine Bilirubin (Negative) Negative Urine Urobilinogen (Up TO 0.2) EU/dL 0.2 Ur Leukocyte Esterase (Negative) Negative Urine RBC (0-2) HPF 0-2 Urine WBC (0-5) HPF Negative Ur Epithelial Cells (Negative) HPF Negative Urine Crystals (Negative) HPF Negative Urine Bacteria (Negative) HPF Negative Urine Casts (Negative) LPF Negative Urine Mucus (Negative) Negative Urine Other (Negative) Negative Ur Culture Indicated? No Urine Glucose (Negative) mg/dL Negative HPI General Mode of arrival: ambulatory . Date/Time Provider Initiated Documentation: 07/03/21 16:52 . Limitations to Documentation: no limitations . Information obtained by: patient . HPI Narrative: Patient is a 54-year-old female with a history of hyperlipidemia, hypothyroidism, presents for left-sided abdominal pain with radiation to her back for the past week in addition to headache and high blood pressure for the p ast few days. She describes the left-sided abdominal pain as constant and pressure-like with radiation occasionally to her right upper quadrant and around to her left side of her mid back. She does admit to worsening of the pain after eating. She took ibuprofen for symptoms yesterday without relief. She has not taken any other frcb-ehy-rcvueiu medications for her pain. She states that abdominal pain is currently 3/10. She also admits to frontal headache for the past few days. She describes the headache as a dull ache and currently 2/10. She states she checked her blood pressure due to her headache and states it has been as high as 170/100 at home. She does admit to occasional dizziness with feels more consistent with a lightheadedness but not a spinning sensation. She states she was unclear of her high blood pressure and headache with secondary to her abdominal pain. She also admits to occasional urinary frequency but denies any dysuria. She states she was seen at the PCP office this week for her symptoms and referred for outpatient labs and imaging of her abdomen. She states she was told her lab work was unremarkable. She states her urine was dipped at her PCP office and was told it had microscopic blood and she was started on Bactrim. She denies any known fever, chest pain, shortness of breath, nausea, vomiting, diarrhea. Related Data Home Medications Medication Instructions Recorded Confirmed calcium carbonate 600 mg-vitamin 1 tab PO DAILY 08/14/12 07/03/21 D3 20 mcg (800 unit) tablet (Caltrate with Vitamin D3) vitamin E 400 unit capsule 1 cap PO DAILY 08/14/12 07/03/21 glucosamine sulfate 2KCl 1,000 mg 1,000 mg PO DAILY 01/07/13 12/24/20 tablet levothyroxine 75 mcg tablet 75 mcg PO as directed #24 tab 10/28/14 07/03/21 (Synthroid) sertraline 100 mg tablet (Zoloft) 1 tab PO DAILY #90 tab-cap 10/28/14 07/03/21 simvastatin 20 mg tablet (Zocor) 1 tab PO QAM #90 tab-cap 10/28/14 07/03/21 levothyroxine 50 mcg tablet 50 mcg PO M-F #70 tab-cap 10/30/14 07/03/21 aspirin 81 mg tablet,delayed 81 mg PO DAILY 02/11/18 07/03/21 release (Aspir-Low) cranberry-Bmarilinzhcahkvvy-Y-Np phos 1 tab PO DAILY 02/11/18 07/03/21 480 mg-20 mg-100 million cell tablet (Cranberry-Probiotic) diltiazem HCl 30 mg tablet 30 mg PO DAILY 07/22/20 07/03/21 omeprazole magnesium 10 mg oral 20 mg PO DAILY #30 ea 07/03/21 suspension,delayed release (Prilosec) sucralfate 1 gram tablet (Carafate) 1 gm PO QACHS #14 tab 07/03/21 sulfamethoxazole 800 1 tab PO BID 07/03/21 07/03/21 mg-trimethoprim 160 mg tablet Previous Rx's Medication Instructions Recorded omeprazole magnesium 10 mg oral 20 mg PO DAILY #30 ea 07/03/21 suspension,delayed release (Prilosec) sucralfate 1 gram tablet (Carafate) 1 gm PO QACHS #14 tab 07/03/21 Allergies Allergy/AdvReac Type Severity Reaction Status Date / Time No Known Allergies Allergy Verified 07/03/21 16:51 General Stated Complaint: GenMedical CHRISTINE: 3 Review of Systems All systems reviewed & are unremarkable except as noted in HPI and below Constitutional Constitutional: Denies chills, Denies excessive sweating, Denies fatigue, Denies fever(s), Reports headache(s), Denies weakness and Denies weight loss Eyes Eyes: Reports system reviewed and no additional complaints, except as documented and Denies blurry vision ENT Ears, Nose, Mouth, and Throat: Denies vertigo, Reports dizziness, Denies otalgia, Reports headache(s), Denies nasal congestion, Denies sore throat and Denies throat swelling Cardiovascular Cardiovascular: Denies chest pain, Denies syncope, Denies rapid heart rate and Denies dyspnea Respiratory Respiratory: Denies chest congestion, Denies cough, Denies pain on inspiration and Denies dyspnea Gastrointestinal Gastrointestinal: Reports abdominal pain, Denies diarrhea and Denies vomiting Genitourinary Genitourinary: Denies hematuria, Denies dysuria, Denies flank pain and Reports other (urinary frequency) Musculoskeletal Musculoskeletal: Denies back pain and Denies joint swelling Integumentary/Breasts Skin/Breast: Denies lesions and Denies rash Neurologic Neurologic: Denies behavioral changes, Denies confusion, Denies vertigo, Reports dizziness, Denies syncope, Reports headache(s), Denies localized weakness and Denies weakness Psychiatric Psychiatric: Denies behavioral changes, Denies confusion and Denies depression Endocrine Endocrine: Denies excessive sweating and Denies fatigue Hematologic/Lymphatic Hematologic/Lymphatic: Denies easy bruising and Denies lymphadenopathy Allergic/Immunologic Allergic/Immunologic: Denies throat swelling PFSH All Active Problems (Updated 07/03/21 @ 20:00 by Cherelle Velásquez DO) Abdominal pain (Acute) Headache (Acute) Hypertension (Chronic) Asymmetrical sensorineural hearing loss (Acute) Hx of colonoscopy (Chronic) Hx of lipoma (Acute) Right fibular fracture (Acute) History of arthroscopy of knee (Acute) History of section (Acute) History of cholesteatoma (Acute 02/19/15) History of laparoscopy (Acute) Hyperlipidemia (Acute 08/13/12) Hypothyroidism (Acute) 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/09/00) 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 Urinary urgency (Acute 12/25/14) Vaginal atrophy (Acute) Dyspareunia (Acute) Conductive hearing loss in left ear (Acute) History of cholesteatoma (Acute) Retraction pocket of tympanic membrane of right ear (Acute) Surgical History (Updated 12/24/20 @ 08:37 by Evelia Martel RN) Arthroplasty of knee (~2001) RIGHT section 1994 & 1996 Cholecystectomy (~2010) Diagnostic Laproscopy FOR ADHESIONS EAR SURGERY (~03/2013) History of mastoidectomy 1994 Tonsillectomy (~1980) Family History Mother Essential hypertension Personal history of malignant neoplasm SKIN/PANCREATIC Hyperlipidemia Father Essential hypertension Personal history of malignant neoplasm SKIN Hyperlipidemia Stroke Sister Essential hypertension Hyperlipidemia Brother Essential hypertension Heart disease Hyperlipidemia Brother , SUICIDE at age 48. Multiple sclerosis Brother Personal history of malignant neoplasm SKIN Grandfather Personal history of malignant neoplasm PROSTATE Grandfather Personal history of malignant neoplasm LUNG/STOMACH Grandmother Personal history of malignant neoplasm LEUKEMIA Heart disease Grandmother Heart disease Myocardial infarction Social History Smoking/Tobacco Use Status: Never Smoking risk assessment performed?: Yes Alcohol Intake: current Alcohol Intake frequency: holidays/special occasions only Alcohol type: wine Drug use: Never Substance use type: does not use Do you feel safe at home: Yes Do you feel safe in your relationship?: Yes History History 3 Para 2 Hx # Term Pregnancies Multiple births Hx # Pregnancies Ectopic pregnancies AB induced Hx Number of Living Children AB spontaneous Exam Const General: cooperative and healthy appearing Orientation: alert, awake and oriented x3 HENMT Head: normal to inspection Ears: hearing grossly normal bilaterally, external ears normal and TM's normal bilaterally General nose exam: external nose normal Face and sinus: normal facial exam Mouth: oral mucosae normal Teeth and gingiva: dentition normal Throat: posterior oropharynx normal Eyes General: appearance normal, both eyes and all related structures Eyelids: eyelids normal Pupils: PERRL EOM: EOM intact bilaterally Neck Neck: normal visual inspection Lymphatic: no lymphadenopathy noted Chest Chest: normal inspection of the chest Resp Effort & Inspection: normal respiratory effort and able to speak in complete sentences Auscultation: clear to auscultation bilaterally Cardio Rate: regular rate Rhythm: regular rhythm GI Inspection: normal to inspection, non-distended, obesity, no visible herniation and no visible pulsation Palpation: soft, not firm, no guarding, no hepatosplenomegaly, no masses, no pu lsatile masses, not rigid, nontender and No ascites Auscultation: normal bowel sounds Back/Spine/Pelvis Back: no CVA tenderness Skin General skin exam: no rashes or lesions noted Neuro General: patient alert, patient awake, moves all extremities, no meningeal signs and no focal motor deficits Cranial Nerves: CN's II-XI intact bilaterally Cognition: normal cognition Speech: speech normal Gait: normal gait Motor: muscle tone normal throughout Sensory Exam: no sensory deficits noted Extrem General: normal to inspection, full ROM, capillary refill normal and no edema Psych Appearance: grossly normal Mental Status: mental status grossly normal Speech and Movement: speech and movement normal Affect: normal affect Thought Process: normal Course Vital Signs Vital signs: Vital Signs Temperature 97.5 F L 07/03/21 16:45 Pulse 70 07/03/21 16:45 Respiratory Rate 18 07/03/21 16:45 Blood Pressure 200/84 H 07/03/21 16:45 Pulse Oximetry 100 07/03/21 16:45 Temperature 97.5 F L 07/03/21 16:45 Temperature Source Temporal Artery Scan 07/03/21 16:45 Pulse 70 07/03/21 16:45 Respiratory Rate 18 07/03/21 16:45 Blood Pressure 200/84 H 07/03/21 16:45 Blood Pressure Position Sitting 07/03/21 16:45 Pulse Oximetry 100 07/03/21 16:45 Oxygen Delivery Method Room Air 07/03/21 16:45 Oxygen Flow Rate 0 07/03/21 16:45
[2021-07-03 17:36] VITALS: RESP 14
--- NOTE | 2021-07-03 17:45 | DI.CT_ITS ---
Exam(s) CT HEAD WO EXAM: CT HEAD WO CLINICAL HISTORY: headache, hypertension, r/o acute cva. TECHNIQUE: Imaging Protocol: Axial computed tomography images with coronal and sagittal reformatted images were created and reviewed COMPARISON: CT HEAD WITH/WITHOUT CONTRAST from 06/19/2008 FINDINGS: Ventricles and Extra axial spaces: Normal in size and morphology for the patient's age. Hemorrhage: None. Cerebral parenchyma: Normal. Midline shift: None. Brainstem/Cerebellum: Normal. Calvarium: Hyperostosis frontalis interna. Calcification along falx. Visualized Paranasal sinuses/Mastoids: Clear. Soft Tissues: Unremarkable. IMPRESSION: No acute intracranial process. RADIATION DOSE DELIVERED: 881.08mGy.cm Total DLP DATA REPOSITORY: All CT scans at this facility are submitted to the National Radiology Data Registry (NRDR) Dose Index Registry (DIR) with the [employer] (ACR). RADIATION OPTIMIZATION: All CT scans at this facility use at least one of these dose optimization te chniques: automated exposure control; mA and/or kV adjustment per patient size (includes targeted exa ms where dose is matched to clinical indication); or iterative reconstruction.
--- NOTE | 2021-07-03 17:45 | DI.RAD_ITS ---
Exam(s) XR CHEST 2V PA LATERAL EXAM: XR CHEST 2V PA LATERAL CLINICAL HISTORY: L lateral rib pain, r/o acute disease TECHNIQUE: 2D digital imaging was performed. COMPARISON: CR ABD FLAT UPRIGHT PA CHEST from 08/10/[address] ABDOMEN PELVIS CTA from 07/02/2021 FINDINGS: MEDIASTINUM: Normal. HEART: Mildly enlarged. PULMONARY VASCULATURE: Normal. LUNGS: Clear. PLEURAL SPACE: No pleural effusion or pneumothorax. BONE:Unremarkable for age. No gross evidence of displaced rib fracture. IMPRESSION: No acute abnormality. DATA REPOSITORY: RADIATION DOSE DELIVERED:
[2021-07-03 18:03] LABS: Abs Immature Grans 0.01 10^3/uL (0.0-0.06); Absolute Basophil Count 0.07 10^3/uL (0.0-0.2); Absolute Eosinophil Count 0.11 10^3/uL (0.0-0.7); Absolute Lymphocyte Count 2.21 10^3/uL (1.2-3.4); Absolute Neutrophil Count 3.62 10^3/uL (1.2-6.7); Basophils % 1.1; Eosinophils % 1.7; HCT 43.8 % (36.0-46.0); HGB 14.2 g/dL (11.2-15.7); Immature Grans % 0.2; MCHC 32.4 % (32.0-36.0); MCV 95.6 fL (80-95); MPV 11.1 fL (8.0-11.0); Monocytes % 4.7; Neutrophils % 57.3; Nucleated RBC 0 %; Platelet Count 212 10^3/uL (130-400); RBC 4.58 10^6/uL (3.93-5.22); RDW 13.3 % (11.7-14.6); RDW-SD 47.2 fL; WBC 6.32 10^3/uL (4.4-10.8)
[2021-07-03] MEDS: Normal Saline 1,000 ML 1000 ML IV (18:11)
[2021-07-03] MEDS: ACETAMINOPHEN 1,000 MG/100 ML BTL 400 MG IVPB (18:11)
[2021-07-03] MEDS: Famotidine 20 MG/2 ML VIAL IVP (18:11)
[2021-07-03] MEDS: Sucralfate 1 GM TAB PO (18:12)
[2021-07-03 18:33] LABS: ALT 25 U/L (14-59); AST 17 U/L (15-37); Albumin 3.7 g/dL (3.4-5.0); Alkaline Phosphatase 76 U/L (46-116); Anion Gap 7.7 mmol/L (3-11); BUN 14 mg/dL (7-18); Bilirubin, Total 0.4 mg/dL (0.2-1.0); CO2 26.3 mmol/L (21.0-32.0); CREATININE 1.1 mg/dL (0.55-1.02); Calcium 8.5 mg/dL (8.5-10.1); Chloride 106 mmol/L (98-107); Estimated GFR 50.17 (mL/min/1.73m2); Glucose 135 mg/dL (74-106); Lipase 136 U/L (73-393); Magnesium 2.2 mg/dL (1.8-2.4); Potassium 3.4 mmol/L (3.5-5.1); Sodium 140 mmol/L (136-145); Total Protein 7.1 g/dL (6.4-8.2); Troponin I < 50 ng/L (<or=60)
[2021-07-03 18:49] LABS: Bilirubin Negative (Negative); Blood Trace-intact (Negative); Clarity Clear (Clear); Glucose Negative (Negative); Ketones Negative (Negative); Leukocyte Esterase Negative (Negative); Nitrite Negative (Negative); Specific Gravity 1.025 (1.005-1.025); Urobilinogen 0.2 EU/dL (Up TO 0.2)
--- NOTE | 2021-07-03 19:02 | DI.VRAD_ITS ---
PROCEDURE INFORMATION: Exam: CT Head Without Contrast Exam date and time: 07/03/2021 6:32 PM Age: 65 years old Clinical indication: Headache/hypertension, R/O acute CVA TECHNIQUE: Imaging protocol: Computed tomography of the head without contrast. COMPARISON: No relevant prior studies available. FINDINGS: Brain: No intracranial hemorrhage or extra-axial fluid collection. No evidence of mass effect or midline shift. Landaverde-white matter differentiation is intact. Cerebral ventricles: No ventriculomegaly. Paranasal sinuses: Visualized sinuses are unremarkable. No fluid levels. Mastoid air cells: Unremarkable. Bones/joints: No acute osseus lesion or fracture. Soft tissues: Unremarkable. IMPRESSION: No acute intracranial pathology. Dictated and Authenticated by: Bridger Puckett MD. Ordering:ERIN Villarreal MD
[2021-07-03 19:03] LABS: Bacteria Negative HPF (Negative); C & S Indicated? No; Casts Negative LPF (Negative); Crystals Negative HPF (Negative); Epithelial Cells Negative HPF (Negative); Mucus Negative (Negative); Other Cells Negative (Negative); RBC 0-2 HPF (0-2); WBC Negative HPF (0-5)
--- NOTE | 2021-07-03 19:03 | DI.VRAD_ITS ---
PROCEDURE INFORMATION: Exam: XR Chest Exam date and time: 07/03/2021 6:33 PM Age: 65 years old Clinical indication: Other: L lateral rib pain, R/O acute disease TECHNIQUE: Imaging protocol: XR of the chest. Views: 2 views. COMPARISON: CT ABDOMEN PELVIS CTA 07/02/2021 3:11 PM FINDINGS: Lungs: No focal areas of consolidation. Pleural spaces: Unremarkable. No pleural effusion. No pneumothorax. Heart/Mediastinum: Cardiac and mediastinal silhouettes are unremarkable. Bones/joints: No acute osseus lesion or fracture. IMPRESSION: No acute cardiopulmonary findings. Dictated and Authenticated by: Bridger Puckett MD. Ordering:ERIN Villarreal MD
== END 2021-07-03 20:15 | disposition home or self-care (01) ==
PROVIDERS: Emergency Provider Physician Assistant; PCP Family Medicine
DX: R10.12 Left upper quadrant pain (principal); R10.32 Left lower quadrant pain; R51.9 Headache, unspecified; R07.81 Pleurodynia; I10 Essential (primary) hypertension; E03.9 Hypothyroidism, unspecified; E78.5 Hyperlipidemia, unspecified
CPT/HCPCS: 36415; 80053; 83690; 93005; 96361; 96374; 96375; 99285; 70450; 71046; 81003; 81015; 83735; 84484; 85025; 93010; 99284; J0131

== ENCOUNTER 2021-07-22 16:01 | Outpatient (REF) | payer BC, SELFPAY ==
[2021-07-22 17:37] LABS: Anion Gap 8.6 mmol/L (3-11); BUN 13 mg/dL (7-18); CO2 27.4 mmol/L (21.0-32.0); CREATININE 0.8 mg/dL (0.55-1.02); Calcium 8.3 mg/dL (8.5-10.1); Chloride 108 mmol/L (98-107); Glucose 122 mg/dL (74-106); Potassium 4.3 mmol/L (3.5-5.1); Sodium 144 mmol/L (136-145)
== END 2021-07-22 16:02 | disposition home or self-care (01) ==
LOC: NCHCN 16:01
PROVIDERS: PCP Family Medicine; Visit Provider Internal Medicine
DX: I10 Essential (primary) hypertension (principal)
CPT/HCPCS: 80048